=== PATIENT | female | born 1955 | race Hispanic/Latino ===

== ENCOUNTER → 2018-07-01 | Outpatient (CLI) | payer BC | END | disposition home or self-care (01) | LOC: RAH 11:05 | PROVIDERS: ATTEND Physician Assistant Medical | DX: Z12.31 Encounter for screening mammogram for malignant neoplasm of breast (principal) | CPT/HCPCS: 77067 ==

== ENCOUNTER → 2019-08-12 | Outpatient (CLI) | payer BC | END | disposition home or self-care (01) | DX: Z12.31 Encounter for screening mammogram for malignant neoplasm of breast (principal) ==

== ENCOUNTER 2022-08-13 11:31 | Emergency (ER) | payer OTHER ==
[~2022-08-13] VITALS: Ht 165.1 cm; Wt 63.5 kg
[2022-08-13] MEDS ORDERED: ACET-2079 PO (13:52)
[2022-08-13] MEDS ORDERED: ACETAMINOPHEN WITH CODEINE 1 TAB TAB PO ONE (14:00)
[2022-08-13 14:08] VITALS: BP 131/74
== END 2022-08-13 14:15 | disposition home or self-care (01) ==
LOC: EDH 11:31
DX: S62.304A Unspecified fracture of fourth metacarpal bone, right hand, initial encounter for closed fracture (principal); E11.9 Type 2 diabetes mellitus without complications; E78.00 Pure hypercholesterolemia, unspecified; I10 Essential (primary) hypertension; Z88.0 Allergy status to penicillin; W18.39XA Other fall on same level, initial encounter; Y93.89 Activity, other specified; Y92.89 Other specified places as the place of occurrence of the external cause; Y99.8 Other external cause status
CPT/HCPCS: 29105; 73120

== ENCOUNTER → 2023-09-25 | Outpatient (CLI) | payer OTHER ==
[~2023-09-25] MED LIST: ACET-2079 PO
== END | disposition home or self-care (01) ==
LOC: RAH 13:05
PROVIDERS: ATTEND Family Medicine
DX: Z12.31 Encounter for screening mammogram for malignant neoplasm of breast (principal); R92.333 Mammographic heterogeneous density, bilateral breasts
CPT/HCPCS: 77067

== ENCOUNTER 2023-12-21 00:49 | Emergency (ER) | payer OTHER ==
[~2023-12-21] VITALS: Ht 165.1 cm; Wt 62.1 kg
[2023-12-21 00:50] VITALS: BP 174/82; PULSE 103; RESP 20; TEMP 97.8
[2023-12-21] MEDS: dexaMETHasone SOD PHOSPHATE 4 MG/ML 1ML VIAL IM ONE (01:09)
[2023-12-21 01:18] LABS: RAPID GROUP A STREP negative (NEGATIVE); SARS-CoV-2, RNA, NAAT NEGATIVE SARS CoV-2 (NEGATIVE)
[2023-12-21 01:23] LABS: INFLUENZA TYPE A Negative For Type A (NEGATIVE); INFLUENZA TYPE B Negative For Type B (NEGATIVE)
[2023-12-21] MEDS ORDERED: LEVO750T68 PO (01:37)
== END 2023-12-21 01:46 | disposition home or self-care (01) ==
LOC: EDH 00:49
DX: J32.9 Chronic sinusitis, unspecified (principal); J06.9 Acute upper respiratory infection, unspecified; E11.9 Type 2 diabetes mellitus without complications; E78.00 Pure hypercholesterolemia, unspecified; I10 Essential (primary) hypertension; Z88.0 Allergy status to penicillin; Z90.49 Acquired absence of other specified parts of digestive tract; Z98.51 Tubal ligation status; Z20.822 Contact with and (suspected) exposure to COVID-19
CPT/HCPCS: 99284; 71045; 87635; 87880; 87804 ×2; 96372; J1100

== ENCOUNTER → 2024-03-17 | Outpatient (CLI) | payer OTHER ==
[~2024-03-17] MED LIST changes: +LEVO750T68 PO
--- NOTE | 2024-03-18 10:20 | HMCIMG ---
PROCEDURE: MAMMO DX UNILATERAL RIGHT, US BREAST COMPLETE UNILATERAL HISTORY: Unspecified right breast lump COMPARISON: 09/25/2023 TECHNIQUE: Right breast digital diagnostic mammogram with CAD was performed. No additional views were obtained. Right breast ultrasound study was performed. Marker was placed over the region of interest. FINDINGS: The breasts are heterogeneously dense, which may obscure small masses. There is no evidence of a dominant mass, or suspicious microcalcification. There is no evidence of nipple retraction or skin thickening. Right breast ultrasound shows no evidence of cystic or hypoechoic mass. Right axillary lymph nodes are seen measuring 11 mm and 13 mm each. IMPRESSION: 1. Stable mammogram. No cystic or hypoechoic mass is seen of right breast. BI-RADS: CATEGORY 2: BENIGN FINDINGS Recommend monthly self breast exam as well as annual clinical examination. A negative x-ray should not delay biopsy if a dominant or clinically suspicious mass is present, since 8-10% of cancers are not identified by mammography. Dense breasts particularly, may obscure an underlying neoplasm. Some of these may be detected clinically and therefore, clinical examination is an essential part of breast evaluation.
== END | disposition home or self-care (01) ==
LOC: RAH 08:23
PROVIDERS: ATTEND Family Medicine
DX: N63.14 Unspecified lump in the right breast, lower inner quadrant (principal); R92.331 Mammographic heterogeneous density, right breast
CPT/HCPCS: 76641; 77065

== ENCOUNTER 2024-11-15 15:57 | Emergency (ER) | payer OTHER ==
[~2024-11-15] VITALS: Ht 165.1 cm; Wt 66.2 kg
--- NOTE | 2024-11-15 16:13 | ERN ---
ED Note History of Present Illness Stated Complaint: SINUS PRESSURE, BODY ACHES Chief Complaint: Headache Time Seen by MD: 16:04 Dictation: PATIENT IS A 69-YEAR-OLD OLD FEMALE HERE WITH MULTIPLE COMPLAINTS TO INCLUDE FLU-LIKE SYMPTOMS TO INCLUDE FRONTAL SINUS AND ETHMOID PRESSURE CONGESTION. ALSO COMPLAINING OF MILD SORE THROAT PAINFUL SWALLOWING. ALSO COMPLAINING OF DIZZINESS. SHE STATES SHE HAS MECLIZINE HOWEVER SHE RAN OUT AND NEEDS A REFILL. CURRENTLY SHE IS ALERT AND ORIENTED X4 SPEECH IS CLEAR, NIH IS 0. STATES SHE HAS TRIED TO GET INTO HER PRIMARY CARE DOCTOR'S OFFICE HOWEVER THEY HE HAD BEEN BOOKED. Allergies: Coded Allergies: Penicillins (Unverified Allergy, Unknown, 08/13/22) Uncoded Allergies: PCN (Allergy, Unknown, 08/13/22) Home Meds Active Scripts Ibuprofen (Ibuprofen) 600 Mg Tablet, 600 MG PO Q6H PRN for PAIN, #30 TAB Prov:ARTHUR HOLT NP 11/15/24 Levofloxacin (Levofloxacin) 500 Mg Tablet, 1 TAB PO DAILY for 10 Days, #10 TAB 0 Refills Prov:ARTHUR HOLT NP 11/15/24 Levofloxacin (Levaquin 750Mg Tabs) 750 Mg Tablet, 750 MG PO DAILY for 5 Days, #5 TAB 0 Refills Prov:SHAHRIAR TOBIN 12/21/23 Acetaminophen with Codeine (Acetaminophen-Cod #3 Tablet) 1 Each Tablet, 1 EACH PO Q4HPRN PRN for PAIN LEVEL 4 TO 6 for 2 Days, #12 TAB Prov:TONI YOUNGBLOOD V AUTOMATIC MACHINE ATTENDANT 08/13/22 Past Medical History Past Medical History: Diabetes-Type II, High Cholesterol, Hypertension, Other Additional Past Medical Hx: GASTRITIS Surgical History: Cholecystectomy, Other, BTL Surgical History Other: LEFT LUMPECTOMY History: Not Applicable RN Note Reviewed/Agreed w/PFSH: Yes Review of System Dictation CONSTITUTIONAL: NEGATIVE EXCEPT FOR HPI HEAD/FACE: NEGATIVE EXCEPT FOR HPI EENT: NEGATIVE EXCEPT FOR HPI SINUS PAIN PRESSURE SORE THROAT RESPIRATORY: NEGATIVE EXCEPT FOR HPI GASTROINTESTINAL/ABDOMINAL: NEGATIVE EXCEPT FOR HPI GENITOURINARY: NEGATIVE EXCEPT FOR HPI MUSCULOSKELETAL: NEGATIVE EXCEPT FOR HPI INTEGUMENTARY: NEGATIVE EXCEPT FOR HPI NEUROLOGICAL/PSYCH: NEGATIVE EXCEPT FOR HPI DIZZINESS/VERTIGO HEMATOLOGIC/LYMPHATIC: NEGATIVE EXCEPT FOR HPI ALL SYSTEMS NEGATIVE, EXCEPT NOTED ABOVE. 13 POINT REVIEW OF SYSTEMS ASSESSED AND ALL NEGATIVE EXCEPT FOR ABOVE. Initial Vital Sign VS Vital Signs Date Time Temp Pulse Resp B/P (MAP) Pulse Ox O2 Delivery O2 Flow Rate FiO2 11/15/24 15:59 97.9 81 16 170/55 100 Room Air 0 Physical Exam Dictation VITAL SIGNS REVIEWED GENERAL APPEARANCE: ALERT, ORIENTED X 3, ACUTE DISTRESS, WELL DEVELOPED, NOURISHED. HEAD AND FACE: NON-TRAUMATIC. MILD FRONTAL AND ETHMOID SINUS TENDERNESS WITH PALPATION EYES: PERRL, PINK CONJUNCTIVAS, EYELID NO TRAUMA, ANTERIOR CHAMBER WITH ARCUS SENILIS. EARS: PINNAS INTACT AND NO SIGNS OF TRAUMA OR ERYTHEMA EAR CANALS CLEAR AND NO DISCHARGE TM NO ERYTHEMA NOSE: CLEAR DISCHARGE, NO BLEEDING. OROPHARYNX: MOUTH NORMAL, TONGUE PINK, PHARYNX CLEAR,NO ERYTHEMA, MILD TONSILS NO EXUDATES, NO ABSCESSES NOTED, MUCOUS MEMBRANE MOIST NECK: SUPPLE, NON-TENDER, NO THYROMEGALY, NO MASSES, NO JVD, NO BRUITS BREAST:DEFERRED CHEST:NO TENDERNESS, NO CREPITUS, NO PARADOXICAL MOVEMENT, NO RETRACTIONS LUNGS:CLEAR, WELL-VENTILATED, SYMMETRIC, NO RALES, NO WHEEZING, NO RHONCHI, NO STRIDOR, GOOD BREATH SOUNDS BILATERALLY HEART: REGULAR RATE, REGULAR RHYTHM, NO MURMUR, NO GALLOPS VASCULAR: NO PERIPHERAL EDEMA, ABDOMEN: SOFT, POSITIVE BOWEL SOUNDS, NONDISTENDED, NO GUARDING, NONTENDER, NO REBOUND, NO MASSES NO HEPATOMEGALY, NO SPLENOMEGALY, NO MCMAHON'S SIGN, NO HERNIAS. RECTAL: DEFERRED GENITAL: DEFERRED NEUROLOGICAL: NORMAL SPEECH, MOTOR FUNCTION INTACT, SENSORY FUNCTION INTACT MUSCULOSKELETAL: NECK NONTENDER, FULL RANGE OF MOTION, BACK NONTENDER, FULL RANGE OF MOTION, EXTREMITIES: NONTENDER, FULL RANGE OF MOTION SKIN: COLOR PINK, DRY, NO TURGOR, NO RASH, NO LACERATIONS, NO ABRASIONS, NO CONTUSIONS. LYMPHATIC: DEFERRED Results (Laboratory/Radiology) Laboratory/Radiology Laboratory Tests Test 11/15/24 16:26 11/15/24 18:16 11/15/24 21:09 White Blood Count 7.1 K/uL (4.8-10.8) Red Blood Count 3.88 MIL/uL (4.00-5.50) L Hemoglobin 12.1 g/dL (12.0-16.0) Hematocrit 36.0 % (36-48) Mean Corpuscular Volume 92.8 fL (79-99) Mean Corpuscular Hemoglobin 31.2 pg (27.0-33.0) Mean Corpuscular Hemoglobin Concent 33.6 g/dL (32.0-36.0) Red Cell Distribution Width 12.4 % (11.0-15.5) Platelet Count 309 K/uL (130-400) Mean Platelet Volume 10.2 fL (7.5-10.5) Immature Granulocyte % (Auto) 0.3 % (0-1) Neutrophils (%) (Auto) 52.7 % (40.0-77.0) Lymphocytes (%) (Auto) 36.0 % (21.0-51.0) Monocytes (%) (Auto) 9.1 % (3.0-13.0) Eosinophils (%) (Auto) 1.5 % (0.0-8.0) Basophils (%) (Auto) 0.4 % (0.0-5.0) Neutrophils # (Auto) 3.8 K/uL (1.8-7.7) Lymphocytes # (Auto) 2.6 K/uL (1.0-4.8) Monocytes # (Auto) 0.7 K/uL (0.1-1.0) Eosinophils # (Auto) 0.11 K/uL (0.00-0.70) Basophils # (Auto) 0.03 K/uL (0.00-0.20) Absolute Immature Granulocyte (auto 0.02 K/uL (0-1) Nucleated Red Blood Cells 0.0 % (0.0-0.19) Sodium Level 137 mmol/L (136-145) Potassium Level 3.9 mmol/L (3.5-5.1) Chloride Level 100 mmol/L (101-111) L Carbon Dioxide Level 30 mmol/L (21-32) Blood Urea Nitrogen 10 mg/dL (7-18) Creatinine 0.7 mg/dL (0.5-1.0) Glomerular Filtration Rate Calc 94 mL/min (>90) Random Glucose 177 mg/dL (70-105) H Total Calcium 9.5 mg/dL (8.5-10.1) Troponin I High Sensitivity 110 ng/L (4-50) *H 106 ng/L (4-50) *H SARS-CoV-2 Antigen (Rapid) PRESUMPTIVE NEGATIVE Labs Reviewed?: Yes EKG: (+) NSR EKG Comment: EKG normal sinus rhythm/heart rate 78/axis normal/no ectopy ED Course ED Course Orders Procedure Category Date Status Time Ct Head/Brain W/O CT 11/15/24 Resulted Contrast 16:09 Meclizine Hcl 25 Mg PHA 11/15/24 Complete (Antivert 25 Mg) 16:30 Dexamethasone 4mg/Ml PHA 11/15/24 Complete 1ml Vial (Dexametha 16:30 Covid19 (Sars Antigen LAB 11/15/24 Complete Rapid) 16:09 Cbc With Differential LAB 11/15/24 Complete 16:09 Troponin I High LAB 11/15/24 Complete Sensitivity 16:09 12 Lead Ekg Tracing- EKG 11/15/24 Logged Technical 16:09 Basic Metabolic Panel LAB 11/15/24 Complete 16:09 12 Lead Ekg Tracing- EKG 11/15/24 Logged Technical 17:59 Troponin I High LAB 11/15/24 Complete Sensitivity 17:59 Meclizine Hcl 25 Mg PHA 11/15/24 Complete (Antivert 25 Mg) 21:30 Dexamethasone 4mg/Ml PHA 11/15/24 Complete 1ml Vial (Dexametha 21:30 Dexamethasone 4mg/Ml PHA 11/15/24 In Process 1ml Vial (Dexametha 22:00 Current Medications Medications (Trade) Dose Ordered Sig/Alice Route PRN Reason Start Time Stop Time Status Last Admin Dose Admin Dexamethasone Sodium Phosphate (dexaMETHasone 4MG/ML 1ML VIAL) 8 mg ONCE ONCE IM 11/15/24 16:30 11/15/24 16:31 DC Dexamethasone Sodium Phosphate (dexaMETHasone 4MG/ML 1ML VIAL) 8 mg ONCE ONCE IM 11/15/24 21:30 11/15/24 21:31 DC 11/15/24 21:40 Dexamethasone Sodium Phosphate (dexaMETHasone 4MG/ML 1ML VIAL) 8 mg ONCE ONCE IM 11/15/24 22:00 11/15/24 22:01 Meclizine HCl (ANTIvert 25 mg) 50 mg ONCE ONCE PO 11/15/24 16:30 11/15/24 16:31 DC Meclizine HCl (ANTIvert 25 mg) 50 mg ONCE ONCE PO 11/15/24 21:30 11/15/24 21:31 DC 11/15/24 21:39 Vital Signs Date Time Temp Pulse Resp B/P (MAP) Pulse Ox O2 Delivery O2 Flow Rate FiO2 11/15/24 15:59 97.9 81 16 170/55 100 Room Air 0 1800/EKG is normal sinus rhythm no changes. High sensitivity troponin is 110 We will follow to repeat EKG and [id number]/ [id number]/spoke with patient and her daughter at length regarding the clinical findings they are aware that she had elevated troponin x2 and that I had like to keep her for cardiac enzymes and cardiac consultation tomorrow Both the patient and daughter state that they do not wish mother to be admitted to the hospital that they would go home they were aware that EKGs were normal And said they we will follow up with her primary care doctor tomorrow. All questions answered Patient instructed to come back any time she has any additional chest pain nausea vomiting back pain jaw pain arm pain. HEART Score Response (Comments) Value History: Low suspicion (0) 0 EKG: Normal 0 Age: > 65yrs (+2) 2 Risk Factors: 1-2 risk factors (+1) 1 Initial Troponin: 1-3x Normal Limit (+1) 1 Total 4 Medical Decision Making MDM MDM: Differential diagnosis: SARs COVID/viral syndrome/electrolyte imbalance/deh ydration/viral syndrome/ACS/AMI/pneumonia Rationale: Tests considered and ordered secondary to shared decision making include: EKG/labs/radiology Previous outside records reviewed: Old ER visits. Risk of complication and/or morbidity or mortality of patient management: None Medications-Per medication reconciliation Need for hospitalization: Patient does not meet criteria for hospitalization. Patient refused at this time. Need for emergency major/minor surgery: No There are no social concerns with this patient. Prescription drug management Levaquin for chronic sinusitis and ibuprofen for headaches. Prescriptions will include symptomatic care Patient's prior external medical records from other ER visits were reviewed by me as indicated. Prior testing and results from previous visits were reviewed. Prior tests were taken into account with medical decision making and resource utilization, independent historian/historians were used to obtain complete medical history. I independently interpreted the test that were performed, results were reviewed by me and considered findings on radiology if ordered. Medical management and examination interpretation discussions were had by me with other qualified healthcare professionals as indicated for the patient's care. DX & DISP Disposition: Discharge Departure Impression: Primary Impression: Chronic sinusitis Additional Impressions: Sinus headache, Uncontrolled diabetes mellitus, Elevated troponin level not due myocardial infarction, Mild dehydration Condition: Stable Scripts Ibuprofen (Ibuprofen) 600 Mg Tablet 600 MG PO Q6H PRN for PAIN, #30 TAB Prov: ARTHUR HOTL NP 11/15/24 Levofloxacin (Levofloxacin) 500 Mg Tablet 1 TAB PO DAILY for 10 Days, #10 TAB 0 Refills Prov: ARTHUR HOLT NP 11/15/24 Additional Instructions: Follow-up with primary care provider in 1 to 2 days. Take medications as directed here in the emergency room. Okay to continue home medications unless otherwise discussed during your visit in the emergency room today. Return to your nearest emergency room if symptoms worsen or if there is no improvement. Call 911 if you need immediate assistance. Take Tylenol or Motrin [id number] as needed and if no contraindications are present. Increase oral hydration. A wound culture or urine culture was ordered here in the emergency room department please follow-up with primary care provider and advise them to get repeat ports from our facility. If you had any Willie wrap/splints that were applied here, please do not remove them until you see your primary care or specialty. Take levofloxacin as directed until gone. Take ibuprofen every 6-8 hours as needed for food for headache. Increase your water intake. And see your primary care doctor for follow up. Police return to the emergency room immediately if any chest pain back pain jaw pain arm pain nausea vomiting. Referrals: ANDREW TOBIN MD (PCP) Time of Disposition: 21:43 I have reviewed the case, and I agree with, Diagnosis and Plan ARTHUR HOLT NP Nov 15, 2024 16:13
[2024-11-15 16:33] LABS: IMMATURE GRANULOCYTE ABSOLUTE 0.02 K/uL (0-1); NUCLEATED RED BLOOD CELLS 0.0 % (0.0-0.19); PLATELET COUNT (AUTO) 309 K/uL (130-400); RED BLOOD CELL COUNT(AUTO) 3.88 MIL/uL (4.00-5.50); RED CELL DISTRIBUTION WIDTH 12.4 % (11.0-15.5); WHITE BLOOD COUNT (AUTO) 7.1 K/uL (4.8-10.8)
[2024-11-15 16:39] LABS: CREATININE 0.7 mg/dL (0.5-1.0); GLOMERULAR FILTR. RATE CALC 94.0 mL/min (>90); GLUCOSE,RANDOM 177.0 mg/dL (70-105); SODIUM SERUM 137.0 mmol/L (136-145); UREA NITROGEN, BLOOD 10.0 mg/dL (7-18)
--- NOTE | 2024-11-15 17:39 | HMCIMG ---
EXAM: CT Head Without IV contrast. CLINICAL HISTORY: GENERALIZED HEADACHE WITH DIZZINESS ONSET FRIDAY. TECHNIQUE: Axial computed tomography images of the head/brain without intravenous contrast. COMPARISON: None provided. FINDINGS: BRAIN: No evidence of acute hemorrhage. No mass lesion. No CT evidence for acute territorial infarct. No midline shift or extra-axial collections. VENTRICLES: No hydrocephalus. ORBITS: The orbits are unremarkable. SINUSES AND MASTOIDS: The paranasal sinuses and mastoid air cells are clear. BONES: No fracture. SOFT TISSUES: Unremarkable. IMPRESSION: No acute intracranial abnormality. /[place]
--- NOTE | 2024-11-15 19:25 | NUR ---
PLACED ON STRETCHER IN ENCARNACION.
[2024-11-15] MEDS ORDERED: LEVO-70 PO (21:44)
[2024-11-15] MEDS ORDERED: IBUP-1492 PO (21:44)
[2024-11-15 22:30] VITALS: BP 152/88; PULSE 78; RESP 18; TEMP 98.3; O2SAT 98
--- NOTE | 2024-11-16 06:52 | EKG ---
[facility] Test Date: 2024-11-15 Test Time: 19:39:46 Pat Name: EVA CAMARA Department: ED Room: Gender: F Punch [employer] Feeder: [id number] : [id number] Requested By: ARTHUR HOLT Order Number: [id number] Reading MD: Randolph Cook Measurements Intervals [place] Rate: 88 P: 61 SD: 162 QRS: 5 QRSD: 100 T: -3 QT: 371 QTc: 451 Interpretive Statements Sinus rhythm Multiple ventricular premature complexes No previous ECG available for comparison Electronically Signed On 11-16-2024 09:55:04 CDT by Randolph Cook Please click the below link to view image of tracing.
--- NOTE | 2024-11-16 06:52 | EKG ---
[facility] Test Date: 2024-11-15 Test Time: 17:39:46 Pat Name: EVA CAMARA Department: ED Room: Gender: F Machine Dyer: [id number] : 1955 Requested By: ARTHUR HOLT Order Number: [id number] Reading MD: Randolph Cook Measurements Intervals [place] Rate: 78 P: 68 AL: 157 QRS: 8 QRSD: 97 T: 11 QT: 375 QTc: 427 Interpretive Statements Sinus rhythm No previous ECG available for comparison Electronically Signed On 11-16-2024 09:54:12 CDT by Randolph Cook Please click the below link to view image of tracing.
== END 2024-11-15 22:32 | disposition home or self-care (01) ==
LOC: EDH 15:57
DX: J32.9 Chronic sinusitis, unspecified (principal); R51.9 Headache, unspecified; E11.65 Type 2 diabetes mellitus with hyperglycemia; R79.89 Other specified abnormal findings of blood chemistry; E86.0 Dehydration; E78.00 Pure hypercholesterolemia, unspecified; I10 Essential (primary) hypertension; Z88.0 Allergy status to penicillin; Z90.49 Acquired absence of other specified parts of digestive tract; Z98.51 Tubal ligation status; Z20.822 Contact with and (suspected) exposure to COVID-19
CPT/HCPCS: 99285; 70450; 87426; 84484 ×2; 80048; 85025; 36415; 96372; 93005 ×2; J1100

== ENCOUNTER → 2025-01-04 | Outpatient (CLI) | payer OTHER ==
[~2025-01-04] MED LIST changes: +IBUP-1492 PO; +IOHEXOL 350 MG/ML 100ML INFUS..BTL IV ONE; +LEVO-70 PO
--- NOTE | 2025-01-05 15:35 | CARDIOLOGY ---
RAD REPORT: CORNARY CT ANGIO RADIOLOGY REPORT: CORONARY CT ANGIOGRAPHY DATE: Jan 05, 2025 QUALITY: Excellent CLINICAL HISTORY AND INDICATION: [ chest pain ] TECHNIQUE: After obtaining a preliminary dispensing lead image, contrast imaging performed on an Aquillon [id number] scanner. A dedicated, limited window, coronary imaging protocol was used, with single breath-hold, retrospective ECG gating, and automated arrhythmia rejection. 100 cc of low osmolar contrast agent: Omnipaque 350 was delivered via a 18-gauge IV catheter in the right antecubital fossa, using a power injector and followed by 60 cc of normal saline bolus as a chaser. Collimated images were reformatted at 0.5 mm intervals, and sent to an offline independent workstation for interpretation, using 3D anatomic reconstructions: Curved multiplanar reconstructions, maximum intensity projections, and multiplanar imaging. 10 mg IV metoprolol was administered prior to scanning. 0.8 mg SL nitroglycerin was given. CORONARY ARTERY DESCRIPTIONS: The coronary arteries arise in normal position. Left main coronary artery: Normal caliber vessel that bifurcates into the LAD and LCx. No stenosis. Left anterior descending coronary artery: Normal caliber vessel and gives rise to diagonal and septal branches. No stenosis. Left circumflex coronary artery: Normal caliber, nondominant and gives rise to a large OM branch. No stenosis. Right coronary artery: Large, dominant vessel giving rise to the PL and PDA branches. No stenosis. CAD-RADs: 0, absence of CAD. Thoracic Aorta: Normal diameter. Dora Wise MD Cardiovascular Disease [facility] DORA WISE MD Jan 05, 2025 15:35
== END | disposition home or self-care (01) ==
LOC: RAH 07:57
PROVIDERS: ATTEND Internal Medicine Cardiovascular Disease
DX: R79.89 Other specified abnormal findings of blood chemistry (principal); R07.9 Chest pain, unspecified
CPT/HCPCS: 75574; J3490 ×2; Q9967